=== PATIENT | female | born 1965 | race Caucasian/White ===

== ENCOUNTER → 2016-08-03 | Outpatient (CLI) | payer OTHER ==
[~2016-08-03] MED LIST: ALBU1NEB10 INH; ALBUAER2 INH; ALPR-411 PO; AMT50 PO; BUTACAP10 PO; CLB200 PO; CLON1TAB3 PO; DPKSR250 PO; ESCI1TAB18 PO; FURO20TA PO; GABA-113 PO; HYDR-4079 PO; HYDR-5688 PO; LEVO175T3 PO; MONT1TAB3 PO; MORP15TA19 PO; OMEP40CA PO; PRD10 PO; PROC1TAB5 PO; PROP80CA PO; RIZA10TA18 PO; SERT25TA PO; SIMV20TA2 PO; TIOTCAP INH
--- NOTE | 2016-08-03 12:11 | DIAGNOSTIC IMAGING REPORT ---
CHEST 2 VIEWS ROUTINE CLINICAL HISTORY: R63.5 Abnormal weight [id number] COMPARISON STUDY: 12/04/2014 FINDINGS: The cardiac and mediastinal contours are normal. There is no evidence of focal pulmonary consolidation. There is no evidence of failure. No pleural effusions are visualized.[ IMPRESSION: No active disease in the chest. Electronically signed by: Manish Soria M.D. 08/03/2016 12:10 PM Dictated Date/Time: 08/03/2016 12:10 PM
[2016-08-03 13:04] LABS: BASO % 0.3 %; BASO ABS # 0.02 K/uL (0-0.2); COMPLETE YES; HEMATOCRIT 40.8 % (37-47); IG% 0.2 %; LYMPH % 32.5 %; LYMPH ABS # 2.05 K/uL (1.2-3.4); MEAN CELL VOLUME 91.3 fL (80-100); MEAN CORPUSCULAR HGB CONC 32.8 g/dl (32-36); MEAN PLATELET VOLUME 9.9 fL (7.4-10.4); MONO % 5.1 %; NEUT % 60.9 %; PLATELET COUNT 197 K/uL (130-400); RED BLOOD COUNT 4.47 M/uL (4.2-5.4); WHITE BLOOD COUNT 6.31 K/uL (4.8-10.8)
[2016-08-03 13:16] LABS: INR 0.9 (0.9-1.1); PROTHROMBIN TIME (PATIENT) 10.1 SECONDS (9.0-12.0)
[2016-08-03 13:56] LABS: ALT/SGPT 22 U/L (12-78); BLOOD UREA NITROGEN 8 mg/dl (7-18); BUN/CREATININE RATIO 12.4 (10-20); CARBON DIOXIDE 28 mmol/L (21-32); CHLORIDE 105 mmol/L (98-107); CREATININE 0.66 mg/dl (0.60-1.20); GLUCOSE 85 mg/dl (70-99); POTASSIUM 3.9 mmol/L (3.5-5.1); SODIUM 139 mmol/L (136-145)
[2016-08-03 14:01] LABS: CALCIUM 9.3 mg/dl (8.5-10.1)
[2016-08-03 14:07] LABS: ALB/GLOB RATIO 1.1 (0.9-2); ALKALINE PHOSPHATASE 74 U/L (45-117); AST/SGOT 20 U/L (15-37)
[2016-08-03 14:53] LABS: ESTIMATED AVERAGE GLUCOSE 128 mg/dl; HA1C FLAG Normal (Normal)
== END | disposition home or self-care (01) ==
LOC: C.RAD1850 11:35
PROVIDERS: ATTEND Physician Assistant
DX: R63.5 Abnormal weight gain (principal)

== ENCOUNTER 2016-08-30 08:01 | Day surgery (SDC) | payer OTHER ==
[~2016-08-30] VITALS: Ht 175.3 cm; Wt 118.0 kg
[2016-08-30] VITALS (11 sets, daily range): BP systolic 91–132; BP diastolic 60–87; PULSE 62–83; TEMP 37–37.1; O2SAT 93–98; Ht 175.3 cm; Wt 118.0 kg
[~2016-08-30 08:01] MED LIST changes: -ALPR-411 PO; -AMT50 PO; -GABA-113 PO; -HYDR-4079 PO; -MORP15TA19 PO; -RIZA10TA18 PO; -SERT25TA PO
[2016-08-30] MEDS ORDERED: RIZA10TA18 PO (08:41)
[2016-08-30] MEDS ORDERED: HYDR-4079 PO (08:41)
[2016-08-30] MEDS ORDERED: MORP15TA19 PO (08:43)
[2016-08-30] MEDS ORDERED: GABA-113 PO (08:44)
[2016-08-30] MEDS ORDERED: ALPR-411 PO (08:45)
[2016-08-30] MEDS ORDERED: SERT25TA PO (08:47)
[2016-08-30] MEDS ORDERED: AMT50 PO (08:47)
--- NOTE | 2016-08-30 10:03 | History & Physical Bridge Note ---
H&P Re-Evaluation Bridge Note: I have examined the patient, reviewed the History & Physical and in the interval since the performance of the History & Physical I have noted the following changes of clinical significance: No changes noted
--- NOTE | 2016-08-30 10:04 | Procedure Note ---
Pre-Mod Sedation Assessment General Date of Moderate Sedation: August 30, 2016. Vital Signs: Vital Signs Past 12 Hours Date Time Temp Pulse Resp B/P Pulse Ox O2 Delivery O2 Flow Rate FiO2 08/30/16 08:25 37.1 67 20 119/82 93 Room Air Pre-Sedation Airway Assessment Short Thick Neck: Yes Hx of Sleep Apnea: No Smoking Status: Current Every Day Smoker Mallampati Classification: Class II ASA Classification: Class II Procedure Planning Contraindications-for Mod Sed: None Yes Notes The planned sedation has been discussed with the patient and consent obtained. I have identified the patient, determined the appropriateness of sedation and have assessed the patient immediately prior to the procedure. All medicine(s) and interventions are by my order.
[2016-08-30] MEDS ORDERED: NURSING VERBAL MED ORDER ONE (10:45)
[2016-08-30] MEDS ORDERED: MIDAZOLAM HCL 5 MG/ML 1 ML VIAL IV ONE (11:00)
[2016-08-30] MEDS ORDERED: FENTANYL CITRATE INJ 50 MCG/1 ML 2 ML VIAL IV ONE (11:00)
--- NOTE | 2016-08-30 11:05 | OPERATIVE REPORT ---
DATE OF OPERATION: 08/30/2016 DATE OF PROCEDURE: 08/30/2016. PROCEDURE: Fiberoptic bronchoscopy with bronchoalveolar lavage. INDICATIONS: Chronic cough/congestion in a chronic smoker refractory to outpatient therapy. ANESTHESIA PREOPERATIVELY: None. ANESTHESIA DURING PROCEDURE: 100 mcg IV fentanyl, 10 mg IV Versed, 20 mL 2% Xylocaine spray above and below the cords, 4% viscous Xylocaine intranasally. PROCEDURE: Fiberoptic bronchoscope was inserted into the left naris with minimal difficulty and passed to the level of the true vocal cords. The cords appeared to approximate normally with phonation without evidence of lesions or paralysis. The nasopharyngeal aperture was somewhat narrowed circumferentially with no lesions visible. The cords were anesthetized with 2% Xylocaine spray and the scope was then introduced in the right and left tracheobronchial tree. The gloria was sharp. The right main stem bronchus was explored initially and no endobronchial lesions were seen. An accessory right upper lobe bronchus was visualized with no endobronchial lesions seen. The right upper lobe bronchus itself showed an apical and posterior-anterior segment free of endobronchial lesions as was the bronchus intermedius. The right middle lobe and the medial and lateral segments and all basilar segments right lower lobe were free of endobronchial lesions with a moderate amount of mucopurulent secretion lavaged from all lobar segments until clear. Chronic inflammatory mucosal change was seen with mucus pitting and bronchial crypts and clefts seen throughout the right tracheobronchial tree. Left tracheobronchial tree was explored and no obvious endobronchial lesions were seen. Left upper lobe, the apical-posterior and anterior segments, lingular subdivision, and left lower lobe were free of endobronchial lesions down to subsegmental bronchi. The left lower lobe copiously lavaged with normosol and the aspirate sent for appropriate studies. No brushings or biopsies were deemed necessary. Fluoroscopy was not utilized. The procedure was terminated. The patient was transferred to the medical treatment unit hemodynamically stable with no signs of respiratory compromise. Will await microbiological and cytologic examination of the bronchial washings. I attest to the content of the Intraoperative Record and any orders documented therein. Any exceptio ns are noted below.
--- NOTE | 2016-08-30 11:18 | Discharge Instructions ---
Discharge Instructions Date of Service August 30, 2016. Admission Reason for Admission: COPD Discharge Discharge Diagnosis / Problem: COPD Discharge Goals Goal(s): Diagnostic testing Activity Recommendations Activity Limitations: resume your previous activity Lifting Limitations: none Exercise/Sports Limitations: none May Resume Sexual Activity: when tolerated Shower/Bathe: no limitations Driving or Machine Use: resume 1 day after discharge . Current Hospital Diet Patient's current hospital diet: Discharge Diet Recommended Diet: Regular Diet Procedures Procedures Performed: Bronchoscopy with Bronchoalveolar lavage. Pending Studies Studies pending at discharge: yes List of pending studies: Cultures. Laboratory Results Hemoglobin A1c Test 08/03/16 11:40 Range/Units Estimated Average Glucose 128 mg/dl Hemoglobin A1c 6.1 H 4.5-5.6 % Medical Emergencies . Who to Call and When: Medical Emergencies: If at any time you feel your situation is an emergency, please call 911 immediately. . Non-Emergent Contact Non-Emergency issues call your: Primary Care Provider . . "Provider Documentation" section prepared by Catracho Lawrence PA-C. . VTE Core Measure Inpt VTE Proph given/why not?: Treatment not indicated (Outpatient procedure. )
[2016-09-01 11:31] LABS: HERPES SIMPLEX CULT SOURCE OTHER-R/L TRACHEOBRO; HERPES SIMPLEX VIRUS CULT NOT ISOLATED (NOT ISOLATED)
== END 2016-08-30 12:51 | disposition home or self-care (01) ==
LOC: C.ACU 08:01
PROVIDERS: ATTEND Internal Medicine Pulmonary Disease
DX: R05 Cough (principal); J44.9 Chronic obstructive pulmonary disease, unspecified; E03.9 Hypothyroidism, unspecified; R63.5 Abnormal weight gain; F17.210 Nicotine dependence, cigarettes, uncomplicated; K21.9 Gastro-esophageal reflux disease without esophagitis; E78.5 Hyperlipidemia, unspecified; Z90.49 Acquired absence of other specified parts of digestive tract; Z90.710 Acquired absence of both cervix and uterus; Z83.3 Family history of diabetes mellitus; Z82.3 Family history of stroke; Z82.49 Family history of ischemic heart disease and other diseases of the circulatory system; Z80.0 Family history of malignant neoplasm of digestive organs

== ENCOUNTER → 2016-11-17 | Outpatient (CLI) | payer OTHER ==
[~2016-11-17] MED LIST changes: +ALPR-411 PO; +AMT50 PO; -BUTACAP10 PO; -CLON1TAB3 PO; -DPKSR250 PO; -ESCI1TAB18 PO; +GABA-113 PO; +HYDR-4079 PO; -HYDR-5688 PO; +MORP15TA19 PO; -PRD10 PO; -PROC1TAB5 PO; +RIZA10TA18 PO; +SERT25TA PO; -TIOTCAP INH
--- NOTE | 2016-11-17 14:02 | DIAGNOSTIC IMAGING REPORT ---
LEFT KNEE 1 OR 2 VIEWS ROUTINE CLINICAL HISTORY: JOINT PAIN, KNEE, left COMPARISON STUDY: None. FINDINGS: No fracture or dislocation within the left knee. Small joint effusion. Soft tissues are unremarkable. Mild to moderate cartilage space narrowing within the medial and lateral compartments with small marginal osteophytes. This is consistent with degenerative change. IMPRESSION: No fractures. Small left knee effusion. Mild to moderate osteoarthritis. Electronically signed by: Ben Rojo M.D. 11/17/2016 2:01 PM Dictated Date/Time: 11/17/2016 2:00 PM
--- NOTE | 2016-11-17 14:03 | DIAGNOSTIC IMAGING REPORT ---
RIGHT HIP UNILATERAL 2 VIEWS CLINICAL HISTORY: Right hip pain COMPARISON: None. DISCUSSION: No fractures or subluxations are visualized. The joint space appears well-preserved for age. There are no erosive or destructive changes. There is no evidence for soft tissue swelling. IMPRESSION: Normal conventional radiographic evaluation of the right hip for age Electronically signed by: Manish Soria M.D. 11/17/2016 2:01 PM Dictated Date/Time: 11/17/2016 2:01 PM
== END | disposition home or self-care (01) ==
LOC: C.RAD1850 13:37
PROVIDERS: ATTEND Physician Assistant
DX: M25.569 Pain in unspecified knee (principal); M25.462 Effusion, left knee; M17.12 Unilateral primary osteoarthritis, left knee

== ENCOUNTER → 2017-08-01 | Outpatient (CLI) | payer OTHER ==
--- NOTE | 2017-08-01 13:03 | DIAGNOSTIC IMAGING REPORT ---
ABDOMEN 2 VIEWS CLINICAL HISTORY: R06.02 Shortness of [id number] pain. Dyspnea. COMPARISON STUDY: No previous studies for comparison. FINDINGS: The soft tissues, psoas shadows, renal outlines and intestinal gas pattern appear normal. There is no evidence for bowel obstruction. There is no evidence for free intraperitoneal air. No abnormal abdominal calcifications are seen. IMPRESSION: Normal study. The above report was generated using voice recognition software. It may contain grammatical, syntax or spelling errors. Electronically signed by: John Fry M.D. 08/01/2017 1:02 PM Dictated Date/Time: 08/01/2017 1:01 PM
--- NOTE | 2017-08-01 13:10 | DIAGNOSTIC IMAGING REPORT ---
TWO VIEW CHEST CLINICAL HISTORY: Dyspnea. FINDINGS: PA and lateral chest radiographs are compared to study dated 08/03/2016 and correlated with chest CT dated 08/22/2012. The examination is degraded by large body habitus. The cardiomediastinal silhouette is unremarkable. A 1.5 cm nodular density projects over the right midlung. No airspace consolidation or pleural effusion is identified. There is no pneumothorax. The bony thorax appears intact. IMPRESSION: 1. No active disease in the chest. 2. A 1.5 cm nodular density projects over the right midlung. This is indeterminant, and a chest CT is recommended to assess for underlying pulmonary lesion. Electronically signed by: Arsalan Elliott M.D. 08/01/2017 1:09 PM Dictated Date/Time: 08/01/2017 1:07 PM
[2017-08-01 14:38] LABS: BASO % 0.3 %; BASO ABS # 0.02 K/uL (0-0.2); EOS % 0.5 %; EOS ABS # 0.03 K/uL (0-0.5); HEMATOCRIT 38.5 % (37-47); HEMOGLOBIN 12.9 g/dL (12.0-16.0); IG# 0.02 K/uL (0.00-0.02); LYMPH % 24.2 %; LYMPH ABS # 1.61 K/uL (1.2-3.4); MEAN CELL VOLUME 91.9 fL (80-100); MEAN CORPUSCULAR HEMOGLOBIN 30.8 pg (25-34); MEAN CORPUSCULAR HGB CONC 33.5 g/dl (32-36); MEAN PLATELET VOLUME 10.3 fL (7.4-10.4); MONO % 4.4 %; MONO ABS # 0.29 K/uL (0.11-0.59); NEUT % 70.3 %; NEUT ABS # 4.67 K/uL (1.4-6.5); PLATELET COUNT 203 K/uL (130-400); RED CELL DISTRIBUTION WIDTH CV 14.8 % (11.5-14.5); RED CELL DISTRIBUTION WIDTH SD 50.1 fL (36.4-46.3); WHITE BLOOD COUNT 6.64 K/uL (4.8-10.8)
[2017-08-01 15:00] LABS: ALBUMIN 4.1 gm/dl (3.4-5.0); ALT/SGPT 21 U/L (12-78); AST/SGOT 26 U/L (15-37); BLOOD UREA NITROGEN 8 mg/dl (7-18); CALCIUM 8.5 mg/dl (8.5-10.1); CARBON DIOXIDE 33 mmol/L (21-32); CREATININE 0.79 mg/dl (0.60-1.20); GLUCOSE 91 mg/dl (70-99); POTASSIUM 3.7 mmol/L (3.5-5.1); SODIUM 138 mmol/L (136-145)
[2017-08-01 15:10] LABS: ALKALINE PHOSPHATASE 81 U/L (45-117); TOTAL PROTEIN 7.5 gm/dl (6.4-8.2)
== END | disposition home or self-care (01) ==
LOC: C.RAD1850 12:20
PROVIDERS: ATTEND Physician Assistant
DX: R06.02 Shortness of breath (principal); R91.8 Other nonspecific abnormal finding of lung field

== ENCOUNTER → 2017-08-07 | Outpatient (CLI) | payer OTHER ==
[~2017-08-07] MED LIST changes: +OPTIRAY 320 IV PRN
--- NOTE | 2017-08-07 15:37 | DIAGNOSTIC IMAGING REPORT ---
CT (CHEST) THORAX WITH CLINICAL HISTORY: 52 years-old Female presenting with J44.9 Chronic obstructive pulmonary disease J45.909 Asthma R06.02. TECHNIQUE: Multidetector CT imaging of the chest was performed after the administration of intravenous contrast. IV contrast: 93 mL of Optiray 320. A dose lowering technique was used consistent with the principles of ALARA (as low as reasonably achievable). COMPARISON: 08/22/2012. CT DOSE (mGy.cm): The estimated cumulative dose is 662.99 mGycm. FINDINGS: [employer] topogram: Unremarkable. On soft tissue windows, normal thyroid and thoracic inlet. No axillary, supraclavicular, hilar, or mediastinal lymphadenopathy. Normal aorta. Normal heart size. Trace pericardial effusion. No pleural effusion. Upper abdomen normal. On lung windows, focal nodular consolidation along the minor fissure within the right upper lobe (series 4 image 146). This focal nodular consolidation abuts the pleura and measures 18 mm in maximal diameter. Minimal tree-in-bud opacities evident in the lateral basal segment of the right lower lobe (series 4 image 176). Bandlike opacities at the lung bases noted, likely atelectasis or scarring. Solid 6 mm round pulmonary nodule in the superior segment of the left lower lobe (series 4 image 86), previously 4 mm and 2013. Solid subpleural polygonal 7 mm nodule in the left lower lobe (series 4 image 102), unchanged. Minimal bronchial wall thickening. Central airways patent. On bone windows, degenerative changes of the spine. IMPRESSION: 1. Focal nodular consolidation along the minor fissure within the right upper lobe. This is indeterminate and an underlying neoplasm cannot be excluded. Consider PET/CT or percutaneous biopsy under CT guidance for further evaluation. 2. Solid pulmonary nodules in the left lower lobe, one of which has slightly increased in size since 2013. The extremely slow doubling time of this nodule suggests benignity. 3. Minimal tree-in-bud opacities in the right lower lobe likely on an infectious or inflammatory basis. 4. Minimal bronchial wall thickening may be due to smoking related lung injury. No emphysema. 5. Trace pericardial effusion. Electronically signed by: Sly Hoover M.D. 08/07/2017 3:36 PM Dictated Date/Time: 08/07/2017 3:29 PM
== END | disposition home or self-care (01) ==
LOC: C.CTS 14:51
PROVIDERS: ATTEND Physician Assistant
DX: J45.909 Unspecified asthma, uncomplicated (principal); J44.9 Chronic obstructive pulmonary disease, unspecified; R06.02 Shortness of breath; R93.8 Abnormal findings on diagnostic imaging of other specified body structures

== ENCOUNTER → 2017-08-23 | Outpatient (CLI) | payer OTHER ==
[~2017-08-23] MED LIST changes: -OPTIRAY 320 IV PRN
--- NOTE | 2017-08-23 09:22 | DIAGNOSTIC IMAGING REPORT ---
PET/CT HISTORY: PULMONARY NODULE TECHNIQUE: PET/CT was performed from the base of the skull through the pelvis following the intravenous administration of 12.7 mCi of F18-FDG. Non-contrast CT imaging was performed over the same range without breath-hold for attenuation correction of PET images and anatomic correlation, but not for primary interpretation as it is not of standard diagnostic quality. CT DOSE: COMPARISON: Chest CT 08/07/2017. FINDINGS: HEAD AND NECK: There is no FDG-avid disease or significant lymphadenopathy in the imaged portions of the head and the neck. CHEST: The peripheral right upper lobe consolidation has improved and has almost completely resolved. No abnormal FDG uptake. There again noted 3 pulmonary nodules within the superior segment of the left lower lobe with the aid and 7 mm nodules on images 67 and 73 remaining stable compared to a 2013 examination. The 6 mm nodule on image 69 as increase in size in the 2013 examination when it measured 4 mm. These do not demonstrate abnormal FDG uptake but are likely below the threshold for PET imaging. No new pulmonary nodules identified. No pleural or pericardial effusions. No enlarged or FDG avid mediastinal hilar lymph nodes. ABDOMEN/PELVIS: Below the diaphragm, tracer is distributed physiologically in the gastrointestinal and genitourinary tracts. There is no significant lymphadenopathy and no FDG-avid disease. Cholecystectomy and hysterectomy. Small fat-containing infraumbilical hernia. MUSCULOSKELETAL: There is no FDG-avid or destructive bone lesion. IMPRESSION: 1. Near complete resolution of the right upper lobe peripheral airspace opacity. This does not demonstrate abnormal FDG uptake and likely represents resolving infectious/inflammatory change. An additional 3-[address] follow up is recommended to ensure complete resolution. 2. The subcentimeter pulmonary nodules within the left lower lobe do not demonstrate abnormal FDG uptake but are likely below the threshold for PET imaging. One-year chest CT follow-up is recommended to evaluate the slow growing 6 mm nodule. Electronically signed by: Ben Rojo M.D. 08/23/2017 9:20 AM Dictated Date/Time: 08/23/2017 8:59 AM
== END | disposition home or self-care (01) ==
LOC: C.PET 06:46
PROVIDERS: ATTEND Physician Assistant
DX: R91.1 Solitary pulmonary nodule (principal)